=== PATIENT | female | born 1990 | race Caucasian/White ===

== ENCOUNTER 2023-07-08 12:56 | Emergency (ER) | payer OTHER, MEDICAID, SELFPAY ==
[2023-07-08] VITALS (17 sets, daily range): BP systolic 93–151; BP diastolic 52–77; PULSE 79–180; RESP 11–29; TEMP 36.7; O2SAT 96–100
--- NOTE | 2023-07-08 13:04 | DI.RAD.S_ITS ---
PROCEDURE: XR CHEST 1V INDICATIONS: Tachycardia TECHNIQUE: One view of the chest was acquired. COMPARISON: None. FINDINGS: Surgical changes and devices: None. Lungs and pleura: Lungs are clear. No pleural effusions or pneumothorax. Mediastinum: Mediastinal contours appear normal. Heart size is normal. Bones and chest wall: No suspicious bony lesions. Overlying soft tissues appear unremarkable. IMPRESSION: No acute cardiopulmonary pathology. Dictated by: Mynor Velasco M.D. on 07/08/2023 at 13:53 Approved by: Mynor Velasco M.D. on 07/08/2023 at 13:53
--- NOTE | 2023-07-08 13:20 | ED_ITS ---
HPI - Arrhythmia/Palpitations General Chief Complaint: Arrhythmia/Palpitations Stated Complaint: tachycardia Time Seen by Provider: 07/08/23 13:03 Source: patient and EMS Mode of arrival: EMS History of Present Illness HPI narrative: Patient is a 32-year-old female who within the past 2 weeks had an ablation for [id number][id number]. She is on metoprolol in the evening. She states that last evening she did have an episode of palpitations and high heart rate but otherwise was asymptomatic. States lasted several hours. She went to bed last night still having the symptoms however she woke up this morning without any symptoms. As the day went on she had a return of the symptoms. She was brought here by EMS. She is feeling like she was having palpitations. No chest pain. Mild lightheadedness. No fevers. She has been taking her medications as directed. Related Data Allergies Allergy/AdvReac Type Severity Reaction Status Date / Time lisinopril Allergy Unknown Verified 07/08/23 12:56 Sulfa (Sulfonamide Allergy Unknown Verified 07/08/23 12:56 Antibiotics) Review of Systems Constitutional Constitutional: Reports system reviewed and no additional complaints, except as documented ENT Ears, Nose, Mouth, and Throat: Reports system reviewed and no additional complaints, except as documented Cardiovascular Cardiovascular: Reports system reviewed and no additional complaints, except as documented Respiratory Respiratory: Reports system reviewed and no additional complaints, except as documented Musculoskeletal Musculoskeletal: Reports system reviewed and no additional complaints, except as documented Integumentary/Breasts Skin/Breast: Reports system reviewed and no additional complaints, except as documented Neurologic Neurologic: Reports system reviewed and no additional complaints, except as documented Hematologic/Lymphatic On Anticoagulants: No Patient History Social History Smoking Status: Never smoker Smoking Status: Never smoker alcohol intake frequency: 0-2 drinks per day Substance Use Type: does not use Exam Initial Vital Signs Initial Vital Signs: Vital Signs Temperature 98.1 F 07/08/23 13:00 Pulse Rate 178 H 07/08/23 13:00 Respiratory Rate 24 07/08/23 13:00 Blood Pressure 147/77 H 07/08/23 13:00 Pulse Oximetry 100 07/08/23 13:00 Oxygen Delivery Method Room Air 07/08/23 13:00 Const General: cooperative, comfortable and No ill appearing HENTX Head: normal to inspection and normocephalic Resp Effort & Inspection: normal respiratory effort Auscultation: clear to auscultation bilaterally Cardio Rate: tachycardic Rhythm: abnormal rhythm Skin General: no rashes or lesions noted Neuro General: patient alert, patient awake, patient oriented x3 and moves all extremities Extrem General: normal to inspection and capillary refill normal Course Orders Ordered: ED Orders 07/08/23 13:04 XR chest 1V Stat 07/08/23 13:08 Complete Blood Count AUTO DIFF Stat Comprehensive Metabolic Panel Stat Lipase Stat Magnesium Stat 07/08/23 13:14 EKG-12 Lead Routine 07/08/23 14:45 EKG-12 Lead Routine Discontinued Medications Diltiazem HCl (Diltiazem 5 Mg/Ml Sdv) 10 mg IV NOW ONE Stop: 07/08/23 13:12 Last Admin: 07/08/23 13:43 Dose: 10 mg Documented By: JAVI Sodium Chloride (Normal Saline 0.9%) 1,000 mls @ 125 mls/hr IV CONT RUBÉN Last Infusion: 07/08/23 14:16 Dose: 0 mls/hr Documented By: Admin: 07/08/23 13:45 Dose: 125 mls/hr Documented By: JAVI Metoprolol Succinate (Metoprolol Er 25 Mg Tablet) 25 mg PO NOW ONE Stop: 07/08/23 15:00 Last Admin: 07/08/23 15:25 Dose: 25 mg Documented By: JAVI Vital Signs Vital signs: Vital Signs - 8 hr 07/08/23 13:00 07/08/23 13:01 07/08/23 13:05 Temperature 98.1 F Pulse Rate 178 H 168 H 168 H Respiratory Rate 24 19 17 Blood Pressure 147/77 H Pulse Oximetry 100 99 Oxygen Delivery Method Room Air 07/08/23 13:06 07/08/23 13:06 07/08/23 13:10 Temperature Pulse Rate 168 H Respiratory Rate 16 Blood Pressure 147/66 H 93/52 L Pulse Oximetry 100 Oxygen Delivery Method 07/08/23 13:10 07/08/23 13:15 07/08/23 13:43 Temperature Pulse Rate 172 H 174 H 102 H Respiratory Rate 17 11 L Blood Pressure 102/68 Pulse Oximetry 99 100 Oxygen Delivery Method Room Air 07/08/23 13:20 07/08/23 13:23 07/08/23 13:23 Temperature Pulse Rate 180 H 175 H Respiratory Rate 22 Blood Pressure 108/71 Pulse Oximetry 98 Oxygen Delivery Method Room Air 07/08/23 13:25 07/08/23 13:25 07/08/23 13:30 Temperature Pulse Rate 179 H Respiratory Rate 29 H Blood Pressure 115/70 151/70 H Pulse Oximetry 99 Oxygen Delivery Method 07/08/23 13:30 07/08/23 13:35 07/08/23 13:40 Temperature Pulse Rate 90 79 Respiratory Rate 21 19 Blood Pressure 99/65 Pulse Oximetry 98 98 Oxygen Delivery Method Room Air 07/08/23 13:40 07/08/23 13:44 07/08/23 13:44 Temperature Pulse Rate 109 H 101 H Respiratory Rate 14 25 H Blood Pressure 102/68 Pulse Oximetry 96 99 Oxygen Delivery Method Room Air 07/08/23 13:45 07/08/23 13:45 07/08/23 13:50 Temperature Pulse Rate 101 H Respiratory Rate 16 Blood Pressure 100/73 99/71 Pulse Oximetry 98 Oxygen Delivery Method Room Air 07/08/23 13:50 07/08/23 15:25 Temperature Pulse Rate 104 H 96 H Respiratory Rate 16 Blood Pressure 111/70 Pulse Oximetry 99 Oxygen Delivery Method Room Air MDM - Arrhythmia/Palpitations Lab Data Attestation: I reviewed the patient's lab results. 07/08/23 13:08 07/08/23 13:08 Labs: Lab Results 07/08/23 07/08/23 Range/Units 13:08 13:08 WBC 9.6 (4.5-11.0) X10^3/uL RBC 4.31 (4.0-5.2) X10^6/uL Hgb 13.1 (12.0-16.0) g/dL Hct 38.5 (36-46) % MCV 89.3 (80-100) fL MCH 30.4 (26-34) PG MCHC 34.1 (30-36) % RDW 12.4 (11.6-14.8) % Plt Count 329 (150-400) X10^3/uL Neut % (Auto) 58.5 (50-75) % Lymph % (Auto) 30.4 (25-40) % [place] % (Auto) 8.8 (3-14) % Eos % (Auto) 1.7 L (2-4) % Baso % (Auto) 0.6 (0-2) % Neut # (Auto) 5600 (5965-6869) /uL Lymph # (Auto) 2900 (9014-2187) /uL [place] # (Auto) 800 (0-900) /uL Eos # (Auto) 200 (0-450) /uL Baso # (Auto) 100 (0-100) /uL Sodium 138 (137-145) mmol/L Potassium 3.8 (3.4-5.1) mmol/L Chloride 107 (98-107) mmol/L Carbon Dioxide 24 (22-32) mmol/L BUN 18 H (7-17) mg/dL Creatinine 0.58 (0.52-1.04) mg/dL Estimated GFR > 60 (>60) mL/min BUN/Creatinine Ratio 31.0 H (6-22) Glucose 91 (70-100) mg/dL Calcium 9.4 (8.4-10.2) mg/dL Magnesium 1.6 (1.6-2.3) mg/dL Total Bilirubin 0.5 (0.2-1.3) mg/dL AST 36 (14-36) IU/L ALT 28 (<35) IU/L Alkaline Phosphatase 69 (38-126) U/L Total Protein 7.6 (6.3-8.2) g/dL Albumin 4.2 (3.5-5.0) g/dL Globulin 3.4 (1.7-4.1) g/dL Albumin/Globulin Ratio 1.2 (1.0-2.8) Lipase 147 (23-300) U/L Point of Care Testing Test Results Negative Urine Dip Bedside Urine Glucose Negative Bedside Urine Bilirubin - Negative Bedside Urine Ketone - Negative Urine Specific [place] 1.005 Bedside Urine Occult Blood - Negative Bedside Urine pH 6.0 Bedside Urine Protein - Negative Bedside Urine Urobilinogen - Negative Bedside Urine Nitrite - Negative Bedside Urine Leukocytes - Negative Esterase Imaging Data Chest x-ray: Radiologist's Impresson: PROCEDURE:? XR CHEST 1V ? INDICATIONS:? Tachycardia ? TECHNIQUE:? One view of the chest was acquired.? ? COMPARISON:? None. ? FINDINGS:? ? Surgical changes and devices:? None.? ? Lungs and pleura:? Lungs are clear.? No pleural effusions or pneumothorax.? ? Mediastinum:? Mediastinal contours appear normal.? Heart size is normal.? ? Bones and chest wall:? No suspicious bony lesions.? Overlying soft tissues appear unremarkable.? ? ? IMPRESSION:? No acute cardiopulmonary pathology ECG Data Attestation: I personally reviewed and interpreted this ECG as follows: Interpretation: Supraventricular tachycardia Ventricular rate [address] T wave changes Sinus rhythm with frequent PACs Ventricular rate is 66 Normal axis Sinus rhythm First-degree AV block Ventricular rate 96 GA interval [address] T wave changes MDM Narrative Medical decision making narrative: Patient did have multiple different rhythms here in the ER. She does have periods of what appeared to be an SVT and then other periods where she. To have sinus rhythm with frequent PACs. She was given diltiazem. Just prior to the 10 mg diltiazem her heart rate did improve to the 90s and became regular and sinus. We did continue to give her the diltiazem and she remained had a sinus rhythm with a rate in the 90s. She stated that she felt much better with a heart rate at this level. No cardioversion needed. Plan will be is to have her increase her metoprolol from 25 mg just at night to 25 mg in the morning and also at night. I did discuss the case with on-call Cardiology who agreed with diltiazem. Will discharge patient home with return precautions. She expressed understanding and agreement. Discharge Plan Departure Patient Disposition: Home Clinical Impression: Supraventricular tachycardia Instructions: DI for Tachycardia Activity Restrictions/Additional Instructions: I recommend that you continue to take all of your medications as directed however increase your metoprolol from 1 time at night to 2 times a day (1 time in the morning and 1 time at night) contact Dr. Bill for follow-up. Return to the emergency department for new or worsening symptoms. Stand Alone Forms: Patient Portal/API, Work Release Note
[2023-07-08 13:32] LABS: Add Manual Diff / Slide Review NO; Basophils Absolute Auto 100 /uL (0-100); Basophils Percent Auto 0.6 % (0-2); Eosinophils Absolute Auto 200 /uL (0-450); Eosinophils Percent Auto 1.7 % (2-4); Hematocrit 38.5 % (36-46); Hemoglobin 13.1 g/dL (12.0-16.0); Lymphocytes Absolute Auto 2900 /uL (1100-4500); Lymphocytes Percent Auto 30.4 % (25-40); Mean Corpuscular HGB Conc 34.1 % (30-36); Mean Corpuscular Hemoglobin 30.4 PG (26-34); Mean Corpuscular Volume 89.3 fL (80-100); Monocytes Absolute Auto 800 /uL (0-900); Monocytes Percent Auto 8.8 % (3-14); Neutrophils Absolute Auto 5600 /uL (1500-7000); Neutrophils Percent Auto 58.5 % (50-75); Platelet Count 329 X10^3/uL (150-400); Red Blood Cell Count 4.31 X10^6/uL (4.0-5.2); Red Cell Distribution Width 12.4 % (11.6-14.8); White Blood Cell Count 9.6 X10^3/uL (4.5-11.0)
[2023-07-08] MEDS: dilTIAZem 5 MG/ML SDV 10 MG IV (13:43)
[2023-07-08] MEDS: SODIUM CHLORIDE 0.9% 1,000 ML 125 ML IV (13:45)
--- NOTE | 2023-07-08 13:59 | PC.NURSE ---
Pt had an ablation procedure 10 days ago, which she stated was a failed procedure that did not work. She says the investment associate was supposed to put in a pacemaker if the procedure was not effective, but they did not. Pt is feeling much better with a heart rate of 94 and chest pressure 3/10. Previously she was feeling 7/10 chest pressure, cold chills, palptations, feeling of near syncope.
[2023-07-08 14:00] LABS: Alanine Aminotransferase 28 IU/L (<35); Albumin 4.2 g/dL (3.5-5.0); Albumin Globulin Ratio 1.2 (1.0-2.8); Alkaline Phosphatase 69 U/L (38-126); Aspartate Aminotransferase 36 IU/L (14-36); Bilirubin Total 0.5 mg/dL (0.2-1.3); Blood Urea Nitrogen 18 mg/dL (7-17); Calcium 9.4 mg/dL (8.4-10.2); Carbon Dioxide 24 mmol/L (22-32); Chloride 107 mmol/L (98-107); Estimated Glomerular Filt Rate > 60 mL/min (>60); Globulin 3.4 g/dL (1.7-4.1); Glucose 91 mg/dL (70-100); Lipase 147 U/L (23-300); Magnesium 1.6 mg/dL (1.6-2.3); Sodium 138 mmol/L (137-145); Total Protein 7.6 g/dL (6.3-8.2)
[2023-07-08 14:01] LABS: HEMOLYSIS 54 (0-50); Potassium 3.8 mmol/L (3.4-5.1)
[2023-07-08] MEDS: METOPROLOL ER 25 MG TABLET PO (15:25)
== END 2023-07-08 15:37 | disposition home or self-care (01) ==
PROVIDERS: Emergency Provider Emergency Medicine; PCP Family Medicine
DX: I47.1 Supraventricular tachycardia (principal)
CPT/HCPCS: 71045; 80053; 81003; 81025; 83690; 83735; 85025; 93005; 96361; 96374; 99284

== ENCOUNTER 2023-08-08 12:56 | Emergency (ER) | payer OTHER, MEDICAID, SELFPAY ==
[2023-08-08] VITALS (9 sets, daily range): BP systolic 109–121; BP diastolic 72–80; PULSE 91–191; RESP 20; TEMP 36.8; O2SAT 99–100; BMI 32.8
--- NOTE | 2023-08-08 13:22 | DI.RAD.S_ITS ---
PROCEDURE: XR CHEST 1V INDICATIONS: chest pain TECHNIQUE: One view of the chest was acquired. COMPARISON: [facility], CR, XR CHEST 1V, 07/08/2023, 13:14. FINDINGS: Surgical changes and devices: None. Lungs and pleura: Lungs are clear. No pleural effusions or pneumothorax. Mediastinum: Mediastinal contours appear normal. Heart size is normal. Bones and chest wall: No suspicious bony lesions. Overlying soft tissues appear unremarkable. IMPRESSION: No evidence acute pulmonary process. Dictated by: Fabian Jc M.D. on 08/08/2023 at 13:51 Approved by: Fabian Jc M.D. on 08/08/2023 at 13:51
--- NOTE | 2023-08-08 13:28 | ED_ITS ---
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 She had an ablation with Dr. Bill June 28 which she reports afterwards she is had increased arrhythmias. She is currently wearing a monitor. She was seen evaluated here on July 08 for the same. At that time cardiology was consulted she was given diltiazem. She currently takes metoprolol 25 twice a day and flecainide 50 twice. She is an appointment with Dr. Bill next week. She reports that this arrhythmia started at 12:45 p.m. and has continued. She is going in and out of it rather quickly. She does feel little bit dizzy she has previously almost passed out but does not quite feel like that day. Related Data Previous Rx's Medication Instructions Recorded diltiazem HCl 120 mg 120 mg PO DAILY #30 caps 08/08/23 capsule,extended release 24 hr Allergies Allergy/AdvReac Type Severity Reaction Status Date / Time lisinopril Allergy Unknown Verified 07/08/23 12:56 Sulfa (Sulfonamide Allergy Unknown Verified 07/08/23 12:56 Antibiotics) Patient History Social History Smoking Status: Current every day smoker Smoking Status: Current every day smoker tobacco type: vaping alcohol intake frequency: 0-2 drinks per day Substance Use Type: does not use Exam Initial Vital Signs Initial Vital Signs: Vital Signs Temperature 98.2 F 08/08/23 13:09 Pulse Rate 191 H 08/08/23 13:09 Respiratory Rate 20 08/08/23 13:09 Blood Pressure 121/76 08/08/23 13:09 Pulse Oximetry 100 08/08/23 13:09 Oxygen Delivery Method Room Air 08/08/23 13:09 GENERAL: Alert pleasant 32-year-old female HEENT: Head atraumatic,EOMI, pupils reactive, face symmetric, moist mucous membranes CARDIOVASCULAR: Tachycardic regular RESPIRATORY: Breath sounds equal bilaterally, no wheezes rales or rhonchi. ABDOMEN: Soft, nontender. Normoactive bowel sounds all 4 quadrants. No guarding or rebound. EXTREMITIES: Normal range of motion, no clubbing or edema. Neurovascularly intact NEUROLOGICAL: Alert and oriented x4.Normal gait and speech. SKIN: Warm, dry, no laceration, no petechiae, no rashes or lesions. Course Orders Ordered: ED Orders 08/08/23 13:20 Complete Blood Count AUTO DIFF Stat Comprehensive Metabolic Panel Stat Lipase Stat Troponin & CK Cardiac Panel Stat 08/08/23 13:22 XR chest 1V Stat EKG-12 Lead Stat 08/08/23 14:46 EKG-12 Lead Stat Discontinued Medications Diltiazem HCl (Diltiazem 5 Mg/Ml Sdv) 10 mg IV NOW ONE Stop: 08/08/23 13:25 Last Admin: 08/08/23 13:38 Dose: 10 mg Documented By: TIFFANIE Diltiazem HCl (Diltiazem Cd 120 Mg Cap) 120 mg PO NOW ONE Stop: 08/08/23 14:33 Last Admin: 08/08/23 14:50 Dose: 120 mg Documented By: TIFFANIE Sodium Chloride (Normal Saline 0.9%) 1,000 mls @ 1,000 mls/hr IV CONT RUBÉN Last Infusion: 08/08/23 14:49 Dose: Infused Documented By: Admin: 08/08/23 13:38 Dose: 1,000 mls/hr Documented By: TIFFANIE Vital Signs Vital signs: Vital Signs - 8 hr 08/08/23 13:09 08/08/23 13:20 08/08/23 13:23 Temperature 98.2 F Pulse Rate 191 H 184 H Respiratory Rate 20 Blood Pressure 121/76 109/80 Pulse Oximetry 100 99 Oxygen Delivery Method Room Air 08/08/23 13:23 08/08/23 13:30 08/08/23 13:31 Temperature Pulse Rate 184 H 183 H Respiratory Rate Blood Pressure 120/72 Pulse Oximetry 99 99 Oxygen Delivery Method 08/08/23 13:31 08/08/23 13:38 08/08/23 14:00 Temperature Pulse Rate 183 H 118 H Respiratory Rate Blood Pressure 120/72 121/80 Pulse Oximetry 99 Oxygen Delivery Method 08/08/23 14:00 08/08/23 14:30 08/08/23 14:30 Temperature Pulse Rate 95 H 99 H Respiratory Rate Blood Pressure 115/78 Pulse Oximetry 99 100 Oxygen Delivery Method 08/08/23 15:00 08/08/23 15:00 Temperature Pulse Rate 91 H Respiratory Rate Blood Pressure 118/76 Pulse Oximetry 100 Oxygen Delivery Method MDM - Arrhythmia/Palpitations Lab Data 08/08/23 13:20 08/08/23 13:20 Labs: Lab Results 08/08/23 Range/Units 13:20 WBC 9.1 (4.5-11.0) X10^3/uL RBC 4.77 (4.0-5.2) X10^6/uL Hgb 14.4 (12.0-16.0) g/dL Hct 41.8 (36-46) % MCV 87.6 (80-100) fL MCH 30.3 (26-34) PG MCHC 34.5 (30-36) % RDW 12.3 (11.6-14.8) % Plt Count 341 (150-400) X10^3/uL Neut % (Auto) 56.5 (50-75) % Lymph % (Auto) 30.7 (25-40) % [place] % (Auto) 8.7 (3-14) % Eos % (Auto) 2.9 (2-4) % Baso % (Auto) 1.2 (0-2) % Neut # (Auto) 5100 (2855-9894) /uL Lymph # (Auto) 2800 (7686-7936) /uL [place] # (Auto) 800 (0-900) /uL Eos # (Auto) 300 (0-450) /uL Baso # (Auto) 100 (0-100) /uL Sodium 137 (137-145) mmol/L Potassium 4.2 (3.4-5.1) mmol/L Chloride 104 (98-107) mmol/L Carbon Dioxide 22 (22-32) mmol/L BUN 15 (7-17) mg/dL Creatinine 0.63 (0.52-1.04) mg/dL Estimated GFR > 60 (>60) mL/min BUN/Creatinine Ratio 23.8 H (6-22) Glucose 118 H (70-100) mg/dL Calcium 10.0 (8.4-10.2) mg/dL Total Bilirubin 0.5 (0.2-1.3) mg/dL AST 39 H (14-36) IU/L ALT 23 (<35) IU/L Alkaline Phosphatase 72 (38-126) U/L Total Creatine Kinase 117 (30-135) U/L Troponin I < 0.012 (0.01-0.034) ng/mL Total Protein 8.6 H (6.3-8.2) g/dL Albumin 4.7 (3.5-5.0) g/dL Globulin 3.9 (1.7-4.1) g/dL Albumin/Globulin Ratio 1.2 (1.0-2.8) Lipase 145 (23-300) U/L Imaging Data Chest x-ray: Radiologist's Impresson: PROCEDURE: XR CHEST 1V INDICATIONS: chest pain TECHNIQUE: One view of the chest was acquired. COMPARISON: [facility], , XR CHEST 1V, 07/08/2023, 13:14. FINDINGS: Surgical changes and devices: None. Lungs and pleura: Lungs are clear. No pleural effusions or pneumothorax. Mediastinum: Mediastinal contours appear normal. Heart size is normal. Bones and chest wall: No suspicious bony lesions. Overlying soft tissues appear unremarkable. IMPRESSION: No evidence acute pulmonary process. Dictated by: Fabian Jc M.D. on 08/08/2023 at 13:51 Approved by: Fabian Jc M.D. on 08/08/2023 at 13:51 ECG Data Interpretation: SVT rate 162 similar to previous EKGs Sinus rhythm rate 94 FL interval 250 QRS [address] changes MDM Narrative Medical decision making narrative: Patient is a 32-year-old female who presents today with elevated heart rate palpitations. History of WPW previous ablation and SVT on flecainide and metoprolol. She actually is quickly going in and out of SVT and sinus rhythm. Dr. Bill was quickly consulted, he agrees the IV diltiazem is appropriate and okay. Recommend stopping the metoprolol starting oral diltiazem 120 mg she is an appointment with him next week. Blood work has been reviewed and overall reassuring. Chest x-ray does not show any abnormality. Repeat EKG shows a sinus rhythm patient is overall feeling a lot better. Discharge Plan Departure Patient Disposition: Home Clinical Impression: Supraventricular tachycardia Instructions: DI for Paroxysmal Supraventricular Tachycardia Activity Restrictions/Additional Instructions: *You have been diagnosed with SVT *What to do: At this time I am glad to see that your heart rate is much better controlled *Continue to take medications as directed Stop taking metoprolol Start taking diltiazem 120 mg once a day Continue taking flecainide *Follow up with your primary care provider in 2-3 days or call [phone] Follow-up with Dr. Bill as scheduled next week *Return to ER if you should have [such as] [or] any new, worsening or concerning symptoms Prescriptions: New diltiazem HCl 120 mg capsule,extended release 24hr 120 mg PO DAILY Qty: 30 0RF Referrals: Ollie Luz MD [Primary Care Provider] - Raheem Bill MD [Physician] - Stand Alone Forms: Patient Portal/API
[2023-08-08 13:31] LABS: Add Manual Diff / Slide Review NO; Basophils Absolute Auto 100 /uL (0-100); Basophils Percent Auto 1.2 % (0-2); Eosinophils Absolute Auto 300 /uL (0-450); Eosinophils Percent Auto 2.9 % (2-4); Hematocrit 41.8 % (36-46); Hemoglobin 14.4 g/dL (12.0-16.0); Lymphocytes Absolute Auto 2800 /uL (1100-4500); Lymphocytes Percent Auto 30.7 % (25-40); Mean Corpuscular HGB Conc 34.5 % (30-36); Mean Corpuscular Hemoglobin 30.3 PG (26-34); Mean Corpuscular Volume 87.6 fL (80-100); Monocytes Absolute Auto 800 /uL (0-900); Monocytes Percent Auto 8.7 % (3-14); Neutrophils Absolute Auto 5100 /uL (1500-7000); Neutrophils Percent Auto 56.5 % (50-75); Platelet Count 341 X10^3/uL (150-400); Red Blood Cell Count 4.77 X10^6/uL (4.0-5.2); Red Cell Distribution Width 12.3 % (11.6-14.8); White Blood Cell Count 9.1 X10^3/uL (4.5-11.0)
[2023-08-08] MEDS: dilTIAZem 5 MG/ML SDV 10 MG IV (13:38)
[2023-08-08] MEDS: SODIUM CHLORIDE 0.9% 1,000 ML 1000 ML IV (13:38)
[2023-08-08 13:42] LABS: Alanine Aminotransferase 23 IU/L (<35); Albumin 4.7 g/dL (3.5-5.0); Albumin Globulin Ratio 1.2 (1.0-2.8); Alkaline Phosphatase 72 U/L (38-126); Aspartate Aminotransferase 39 IU/L (14-36); BUN Creatinine Ratio 23.8 (6-22); Bilirubin Total 0.5 mg/dL (0.2-1.3); Blood Urea Nitrogen 15 mg/dL (7-17); Carbon Dioxide 22 mmol/L (22-32); Chloride 104 mmol/L (98-107); Creatine Kinase 117 U/L (30-135); Estimated Glomerular Filt Rate > 60 mL/min (>60); Globulin 3.9 g/dL (1.7-4.1); Glucose 118 mg/dL (70-100); Lipase 145 U/L (23-300); Potassium 4.2 mmol/L (3.4-5.1); Sodium 137 mmol/L (137-145); Total Protein 8.6 g/dL (6.3-8.2)
[2023-08-08 13:43] LABS: HEMOLYSIS 74 (0-50)
[2023-08-08 13:54] LABS: Troponin I < 0.012 ng/mL (0.01-0.034)
[2023-08-08] MEDS: dilTIAZem CD 120 MG CAP PO (14:50)
== END 2023-08-08 15:15 | disposition home or self-care (01) ==
PROVIDERS: Emergency Provider Emergency Medicine; PCP Family Medicine
DX: I47.10 Supraventricular tachycardia, unspecified (principal); R07.9 Chest pain, unspecified
CPT/HCPCS: 36415; 71045; 80053; 82550; 83690; 84484; 85025; 93005; 93010; 96361; 96374; 99284